=== PATIENT | female | born 1955 | race Caucasian/White ===

== ENCOUNTER 2023-02-13 18:34 | Observation (INO) | payer MEDICARE, OTHER ==
[~2023-02-13] VITALS: Ht 160 cm; Wt 69.2 kg
--- NOTE | 2023-02-13 18:48 | ED Chest Pain ---
General Chief Complaint: Cardiac/General Problems Stated Complaint: CHEST PAIN Nursing Triage Note: PT AMB TO ED BY POV WITH WITH C/O CP. PT REPORTS HEAVINESS IN CHEST BEGAN THIS AFTERNOON. PT REPORTS UPPER BACK PAIN BEGINNING LAST WEEK. Source: patient Exam Limitations: no limitations History of Present Illness Date Seen by Provider: Feb 13, 2023 Time Seen by Provider: 18:36 Initial Comments 67 yo F here for CP and elevated BP. She states she is currently being treated for urinary tract infection with hematuria. She has been having elevated blood pressures recently. She is on metoprolol as well as Cozaar recent changes in these. Her gave her half of one of his clonidine tablets about a week ago as her blood pressures were in the 190s systolic she has some mild anterior chest pressure which she describes more as a discomfort. She has a myriad of other complaints including some right hip numbness and some diffuse tingling. She denies any fevers chills cough abdominal pain or changes in bowel habits. No known cardiac history. All other systems reviewed and negative except documented per HPI. Voice recognition software was used to help create this chart Allergies and Home Medications Allergies Coded Allergies: No Known Drug Allergies (Unverified , 02/13/23) Patient Home Medication List Home Medication List Reviewed: Yes Review of Systems Review of Systems Constitutional: see HPI Past Cekgizm-Ldkyas-Dalubv Hx Patient Social History Tobacco Use?: No Use of E-Cig and/or Vaping dev: No Substance use?: No Alcohol Use?: No Physical Exam Vital Signs Vital Signs - First Documented 02/13/23 18:41 Temp 36.2 Pulse 71 Resp 14 B/P (MAP) 189/99 (129) Pulse Ox 96 O2 Delivery Room Air Capillary Refill : Less Than 3 Seconds Height, Weight, BMI Height: '" Weight: lbs. oz. 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 Skin: Normal Color, Warm/Dry Progress/Results/Core Measures Results/Orders Lab Results Laboratory Tests Test 02/13/23 18:47 Range/Units White Blood Count 10.0 4.3-11.0 10^3/uL Red Blood Count 4.18 3.80-5.11 10^6/uL Hemoglobin 12.4 11.5-16.0 g/dL Hematocrit 37 35-52 % Mean Corpuscular Volume 89 80-99 fL Mean Corpuscular Hemoglobin 30 25-34 pg Mean Corpuscular Hemoglobin Concent 33 32-36 g/dL Red Cell Distribution Width 13.8 10.0-14.5 % Platelet Count 362 130-400 10^3/uL Mean Platelet Volume 8.7 L 9.0-12.2 fL Immature Granulocyte % (Auto) 0 % Neutrophils (%) (Auto) 57 42-75 % Lymphocytes (%) (Auto) 31 12-44 % Monocytes (%) (Auto) 8 0-12 % Eosinophils (%) (Auto) 2 0-10 % Basophils (%) (Auto) 1 0-10 % Neutrophils # (Auto) 5.7 1.8-7.8 10^3/uL Lymphocytes # (Auto) 3.1 1.0-4.0 10^3/uL Monocytes # (Auto) 0.8 0.0-1.0 10^3/uL Eosinophils # (Auto) 0.2 0.0-0.3 10^3/uL Basophils # (Auto) 0.1 0.0-0.1 10^3/uL Immature Granulocyte # (Auto) 0.0 0.0-0.1 10^3/uL Sodium Level 127 L 135-145 MMOL/L Potassium Level 3.5 L 3.6-5.0 MMOL/L Chloride Level 95 L 98-107 MMOL/L Carbon Dioxide Level 20 L 21-32 MMOL/L Anion Gap 12 5-14 MMOL/L Blood Urea Nitrogen 9 7-18 MG/DL Creatinine 0.83 0.60-1.30 MG/DL Estimat Glomerular Filtration Rate 76 BUN/Creatinine Ratio 11 Glucose Level 108 H 70-105 MG/DL Calcium Level 9.1 8.5-10.1 MG/DL Corrected Calcium 8.9 8.5-10.1 MG/DL Magnesium Level 1.7 1.6-2.4 MG/DL Total Bilirubin 0.2 0.1-1.0 MG/DL Aspartate Amino Transf (AST/SGOT) 18 5-34 U/L Alanine Aminotransferase (ALT/SGPT) 17 0-55 U/L Alkaline Phosphatase 91 40-136 U/L Troponin I < 0.028 <0.028 NG/ML Total Protein 6.9 6.4-8.2 GM/DL Albumin 4.3 3.2-4.5 GM/DL My Orders Orders - BRENDA MOORE DO Cbc With Automated Diff (02/13/23 18:46) Magnesium (02/13/23 18:46) Chest 1 View, Ap/Pa Only (02/13/23 18:46) Ekg Tracing (02/13/23 18:46) Comprehensive Metabolic Panel (02/13/23 18:46) Monitor-Rhythm Ecg Trace Only (02/13/23 18:46) Ed Iv/Invasive Line Start (02/13/23 18:46) Troponin I [facility] (02/13/23 18:46) Aspirin Chewable Tablet (Aspirin Chewabl (02/13/23 19:00) Ns Iv 500 Ml (Ns Iv 500 Ml) (02/13/23 19:32) Potassium Chloride (Tablet) (Potassium C (02/13/23 19:45) Medications Given in ED Current Medications Medications Dose Ordered Sig/Anabelle Route Start Time Stop Time Status Last Admin Dose Admin Aspirin 324 mg ONCE ONCE PO 02/13/23 19:00 02/13/23 19:01 DC 02/13/23 19:12 324 MG Vital Signs/I&O 02/13/23 18:41 Temp 36.2 Pulse 71 Resp 14 B/P (MAP) 189/99 (129) Pulse Ox 96 O2 Delivery Room Air Blood Pressure Mean: 129 Comment Sinus rhythm with a rate of 70 bpm. Normal intervals. Normal axis prominent Q waves in lead III. No ST or T wave abnormalities. No ectopy. No STEMI Departure Communication (Admissions) Patient's cardiac work-up is unremarkable with a negative troponin, normal EKG that is nonischemic. Her sodium yesterday when checked was 130. Is 127 today. Unclear etiology at this time. She does have a UTI being treated with her bed currently. 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 Have ordered p.o. potassium with Dr. Zhong secondary to hyponatremia and she agrees to admission observation at this time. I will place bridging orders Impression Primary Impression: Hyponatremia Additional Impressions: Hypokalemia Chest pain Qualified Codes: R07.9 - Chest pain, unspecified Fatigue Qualified Codes: R53.83 - Other fatigue Disposition: ADMITTED INPATIENT Condition: Stable Departure-Patient Inst. Referrals: LANEY CODY APRN (PCP/Family) Primary Care Physician BRENDA MOORE DO Feb 13, 2023 18:48
[2023-02-13 18:54] LABS: BASOPHILS # (AUTO) 0.1 10^3/uL (0.0-0.1); BASOPHILS % (AUTO) 1 % (0-10); EOSINOPHILS # (AUTO) 0.2 10^3/uL (0.0-0.3); EOSINOPHILS % (AUTO) 2 % (0-10); HEMATOCRIT 37 % (35-52); HEMOGLOBIN 12.4 g/dL (11.5-16.0); LYMPHOCYTES # (AUTO) 3.1 10^3/uL (1.0-4.0); LYMPHOCYTES % (AUTO) 31 % (12-44); MEAN CORPUSCULAR HEMOGLOBIN 30 pg (25-34); MEAN CORPUSCULAR HGB CONC 33 g/dL (32-36); MEAN CORPUSCULAR VOLUME 89 fL (80-99); MEAN PLATELET VOLUME 8.7 fL (9.0-12.2); MONOCYTES # (AUTO) 0.8 10^3/uL (0.0-1.0); MONOCYTES % (AUTO) 8 % (0-12); NEUTROPHILS # (AUTO) 5.7 10^3/uL (1.8-7.8); NEUTROPHILS % (AUTO) 57 % (42-75); PLATELET COUNT 362 10^3/uL (130-400)
[2023-02-13] MEDS ORDERED: ASPIRIN 81 MG CHEWABLE TABLET PO ONE (19:00)
--- NOTE | 2023-02-13 19:01 | Diagnostic Imaging Report ---
EXAMINATION: Chest 1 view HISTORY: Chest pain. COMPARISON: None available. FINDINGS: The lung volumes are normal. No focal consolidation is seen. No large pleural effusion or pneumothorax is seen. The cardiomediastinal silhouette is normal in size and contour. No acute osseous abnormality is seen. IMPRESSION: 1. No acute pleuroparenchymal process. Dictated by: Dictated on workstation # [id number]
[2023-02-13 19:17] LABS: ALANINE AMINOTRANSFERASE 17 U/L (0-55); ALBUMIN 4.3 GM/DL (3.2-4.5); ALKALINE PHOSPHATASE 91 U/L (40-136); BILIRUBIN,TOTAL 0.2 MG/DL (0.1-1.0); BUN/CREATININE RATIO 11; CALCIUM 9.1 MG/DL (8.5-10.1); CARBON DIOXIDE 20 MMOL/L (21-32); CHLORIDE 95 MMOL/L (98-107); CREATININE SERUM 0.83 MG/DL (0.60-1.30); GFR ESTIMATED 76; GLUCOSE 108 MG/DL (70-105); MAGNESIUM 1.7 MG/DL (1.6-2.4); POTASSIUM 3.5 MMOL/L (3.6-5.0); SODIUM 127 MMOL/L (135-145); TOTAL PROTEIN 6.9 GM/DL (6.4-8.2)
[2023-02-13] MEDS ORDERED: NS IV 500 ML 500 ML IV STA (19:32)
[2023-02-13] MEDS ORDERED: POTASSIUM CHLORIDE 20 MEQ TABLET PO ONE (19:45)
[2023-02-13 20:56] VITALS: BP 220/100
[2023-02-13] MEDS ORDERED: OXYC-199 PO (21:31)
[2023-02-13] MEDS ORDERED: ASPI-999 PO (21:31)
[2023-02-13] MEDS ORDERED: AMIT50TA3 PO (21:31)
[2023-02-13] MEDS ORDERED: OMEP40CA6 PO (21:31)
[2023-02-13] MEDS ORDERED: FLUO40CA12 PO (21:31)
[2023-02-13] MEDS ORDERED: METO50TA15 PO (21:31)
[2023-02-13] MEDS ORDERED: LOSA25TA2 PO (21:31)
[2023-02-13] MEDS ORDERED: TIZA2CAP9 PO (21:31)
[2023-02-13] MEDS ORDERED: ALPR0.254 PO (21:31)
[2023-02-13] MEDS ORDERED: meTOprolol TARTRATE (IR) 50 MG TABLET PO ONE (21:45)
[2023-02-13] MEDS ORDERED: amLODIPine 10 MG TABLET PO ONE (21:45)
[2023-02-13] MEDS ORDERED: cefTRIAXone IV/IM 1,000 MG in NS (IVPB) 50 ML 50 ML IV SCH (22:00)
[2023-02-13] MEDS ORDERED: NS IV 1000 ML 1,000 ML ONE (22:21)
[2023-02-13] MEDS ORDERED: ACETAMINOPHEN 500 MG TABLET PO PRN (22:45)
[2023-02-13] MEDS: NS IV 1000 ML 1,000 ML IV SCH (23:49)
[2023-02-14 00:46] VITALS: BP 168/71
[2023-02-14] MEDS: ONDANSETRON INJECTION 4 MG/2 ML (SDV) IV PRN ×2 (01:46→09:29)
[2023-02-14 04:00] VITALS: BP 120/77
[2023-02-14 05:45] LABS: BASOPHILS # (AUTO) 0.1 10^3/uL (0.0-0.1); BASOPHILS % (AUTO) 1 % (0-10); EOSINOPHILS # (AUTO) 0.2 10^3/uL (0.0-0.3); EOSINOPHILS % (AUTO) 3 % (0-10); HEMATOCRIT 37 % (35-52); HEMOGLOBIN 12.3 g/dL (11.5-16.0); LYMPHOCYTES % (AUTO) 31 % (12-44); MEAN CORPUSCULAR HEMOGLOBIN 29 pg (25-34); MEAN CORPUSCULAR HGB CONC 33 g/dL (32-36); MEAN CORPUSCULAR VOLUME 88 fL (80-99); MEAN PLATELET VOLUME 9.1 fL (9.0-12.2); MONOCYTES # (AUTO) 0.7 10^3/uL (0.0-1.0); MONOCYTES % (AUTO) 10 % (0-12); NEUTROPHILS # (AUTO) 3.6 10^3/uL (1.8-7.8); NEUTROPHILS % (AUTO) 55 % (42-75); PLATELET COUNT 379 10^3/uL (130-400); WHITE BLOOD COUNT 6.5 10^3/uL (4.3-11.0)
[2023-02-14 06:03] LABS: CALCIUM 9.2 MG/DL (8.5-10.1); CREATININE SERUM 0.72 MG/DL (0.60-1.30); POTASSIUM 3.9 MMOL/L (3.6-5.0)
[2023-02-14 08:18] VITALS: BP 154/76
[2023-02-14] MEDS ORDERED: meTOprolol TARTRATE (IR) 50 MG TABLET PO SCH (09:00)
[2023-02-14] MEDS: NS IV 1000 ML 1,000 ML IV SCH (09:30)
[2023-02-14 11:55] VITALS: BP 182/86
[2023-02-14] MEDS ORDERED: CEFD300C3 PO (12:12)
[2023-02-14] MEDS ORDERED: CLN.1T PO (12:12)
--- NOTE | 2023-02-14 12:42 | Short Stay Summary-Hospitalist ---
GISELLE DE LOS SANTOS 02/14/23 1242: History of Present Illness HPI/Chief Complaint 67-year-old female with a history of HTN presented to the ED on 02/13 with chief complaint of elevated BP and chest pain which she described as a discomfort, mild pressure and heaviness. She takes metoprolol 50mg BID and losartan 25mg daily. She measures her BP at home and reports that for the past month her systolic had been in the 160s and last week it was measuring in the 180s. On one occasion she took half of her husbands clonidine tablet which helped to lower her pressure. EKG showed an od septal GA but no acute changes and troponin was negative. While in the ED she was found to have a sodium of 127, was given NS during her stay and sodium was measured at 137 today. She reports that she had been drinking a lot of water recently because she has had a UTI with hematuria. She was started on nitrofurantoin Friday, but was still having hematuria, she had a prescription for clindamycin called in but she had not picked it up. She was started on 1g rocephin while in the ED, which she reports improved the left flank pain she had been experiencing. Her BP reached 220/100 around 23:00 last night and she was started on metoprolol 100mg BID and given a one time dose of norvasc 10mg, her BP improved to 120/77, measured this morning at 154/76. She reports that she has an appointment with her PCP Radha Fuentes later this month who has been managing her HTN. She is being discharged today on metoprolol 100mg BID, losartan 25mg daily, and clonidine 0.1mg PRN for BP>160, and has been instructed to keep a log of her BP for her PCP appointment later this month. Source: patient Exam Limitations: no limitations Date Seen 02/14/23 Time Seen by a Provider: 10:30 Attending Physician Radha Fuentes Aprn PCP Admitting Physician: Maribell Zhong MD Attending Physician: Tonya Easley DO Referring Physician Date of Admission Feb 13, 2023 at 20:46 Home Medications & Allergies Home Medications Reviewed patient Home Medication Reconciliation performed by pharmacy medication reconciliations pipeline technician and/or nursing. Patients Allergies have been reviewed. Allergies Allergies Coded Allergies Penicillins (Verified Allergy, Unknown, 02/13/23) Sulfa (Sulfonamide Antibiotics) (Verified Allergy, Unknown, 02/13/23) cephalexin (Verified Allergy, Unknown, 02/13/23) nitrofurantoin (Verified Allergy, Unknown, 02/13/23) Past Medical/Social/Family Hx Patient Social History Tobacco Use?: No Tobacco type used: Cigarettes Smoking Status: Never a Smoker Smokeless Tobacco Frequency: Never a User Use of E-Cig and/or Vaping dev: No Substance use?: No Alcohol Use?: No Pt stated abuse/neglect: No Current Status Advance Directives: No Communicates: Verbally Primary Language: Somali Preferred Spoken Language: Somali Is interpretation needed?: No Physical Exam Physical Exam Vital Signs Vital Signs - First Documented 02/13/23 18:41 Temp 36.2 Pulse 71 Resp 14 B/P (MAP) 189/99 (129) Pulse Ox 96 O2 Delivery Room Air Capillary Refill : Less Than 3 Seconds Height, Weight, BMI Height: '" Weight: lbs. oz. 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 Clinical Quality Measures AMI/AHF: ASA po Prior to arrival: TONYA Lema DO 02/15/23 0547: History of Present Illness HPI/Chief Complaint Chief complaint: Hypertensive urgency with hyponatremia and UTI HPI: This is a 67-year-old female with a history of hypertension who presented with nonspecific chest pain and UTI symptoms. Since her admission her blood pressure has become much improved and will transition to blood pressure medication for home. She will have close follow-up with PCP. Source: patient Exam Limitations: no limitations Past Medical/Social/Family Hx Patient Social History Marrital Status: single Employed/Student: retired Smoking Status: Current Everyday Smoker Review of Systems Constitutional: see HPI Physical Exam Physical Exam General Appearance: No Apparent Distress, WD/WN, Chronically ill Respiratory: Lungs Clear, Normal Breath Sounds Cardiovascular: Regular Rate, Rhythm Short Stay Diagnosis Discharge Diagnosis-Short Stay Admission Diagnosis Hypertensive urgency UTI Final Discharge Diagnosis Hypertensive urgency UTI Conclusion Plan Discharge home on clonidine as needed Antibiotic for UTI Supervisory-Addendum Brief Verification & Attestation Participated in pt care: history, MDM, physical Personally performed: exam, history, MDM, supervision of care Care discussed with: Medical Student Procedures: n/a Results interpretation: Verified all documentation Verification and Attestation of Medical Student E/M Service A medical student performed and documented this service in my presence. I reviewed and verified all information documented by the medical student and made modifications to such information, when appropriate. I personally performed the physical exam and medical decision making. Tonya Easley, Feb 15, 2023,05:47 GISELLE DE LOS SANTOS Feb 14, 2023 12:42 TONYA EASLEY DO Feb 15, 2023 05:47
== END 2023-02-14 13:20 | disposition home or self-care (01) ==
LOC: ER 18:40 → 4TH 20:46
PROVIDERS: ADMIT Family Medicine; ATTEND Internal Medicine
DX: I16.0 Hypertensive urgency (principal); N39.0 Urinary tract infection, site not specified; E87.1 Hypo-osmolality and hyponatremia; E87.6 Hypokalemia; R53.83 Other fatigue; F17.210 Nicotine dependence, cigarettes, uncomplicated; Z79.899 Other long term (current) drug therapy
CPT/HCPCS: 71045; 80048; 80053; 83735; 84484; 85025 ×2; 93005; 93041; 96375 ×2; 96376; 99284; G0378; 36415

== ENCOUNTER → 2023-04-10 | Outpatient (CLI) | payer MEDICARE, OTHER ==
[~2023-04-10] MED LIST: ALPR0.254 PO; AMIT50TA3 PO; ASPI-999 PO; CEFD300C3 PO; CLN.1T PO; FLUO40CA12 PO; LOSA-414 PO; METO50TA15 PO; OMEP40CA6 PO; OXYC-199 PO; TIZA2CAP9 PO
== END ==
LOC: CARD 11:12
PROVIDERS: ATTEND Internal Medicine Cardiovascular Disease
DX: E78.5 Hyperlipidemia, unspecified (principal); I10 Essential (primary) hypertension; I34.0 Nonrheumatic mitral (valve) insufficiency
CPT/HCPCS: 93306